=== PATIENT | male | born 1965 | race Caucasian/White ===

== ENCOUNTER 2019-01-09 17:03 | Emergency (ER) | payer BC ==
[2019-01-09 17:55] LABS: ABS Basophils 0.1 10^3/ul (0-0.2); ABS Eosinophils 0.3 10^3/ul (0-0.6); ABS Lymphocytes 1.1 10^3/ul (1.0-4.8); ABS Monocytes 0.7 10^3/ul (0-0.8); ABS Neutrophils 5.7 10^3/ul (1.5-7.7); Eosinophil % 3.4 %; Hematocrit 43 % (42-52); Hemoglobin 14.7 g/dL (14.0-18.0); Lymphocyte % 14.4 %; Mean Corpuscular HGB Conc 34 g/dL (31-36); Mean Corpuscular Hemoglobin 29 pg (27-31); Mean Corpuscular Volume 86 fL (80-94); Mean Platelet Volume 9.1 fL (7.4-10.4); Platelet Count 300 10^3/uL (150-450); Red Cell Distribution Width 14 % (10-15); White Blood Count 7.8 10^3/uL (3.5-10.8)
--- NOTE | 2019-01-09 18:08 | ED ---
Hypertension - HPI Summary HPI Summary: Pt is a 53 y/o M presenting to the ED With a chief complaint of HTN. Pt states that he was feeling "woozy" yesterday but the feeling passed, and today he had similar symptoms. He felt like he was going to pass out, his skin was "prickly" , and that something wasnt right. He notes he has had increased stress recently including working longer hours, and has hx of hypertensive episodes where hes felt similarly. He denies CP or SOB. He had an stress echocardiogram within the last 5 years. Denies current difficulty breathing or trouble swallowing (as per Rn note). Denies history of [place]. - History of Current Complaint Chief Complaint: EDHypertension Stated Complaint: GENERAL ILLNESS PER EMS Time Seen by Provider: 01/09/19 17:07 Hx Obtained From: Patient Onset/Duration: Started Days Ago, Still Present Timing: Intermittent, Lasting Hours Aggravating Factor(s): Nothing Alleviating Factor(s): Nothing Associated Signs & Symptoms: Anxiety/Stress, Dizziness - Allergies/Home Medications Allergies/Adverse Reactions: Allergies Allergy/AdvReac Type Severity Reaction Status Date / Time No Known Allergies Allergy Verified 01/30/16 09:42 PMH/Surg Hx/FS Hx/Imm Hx Previously Healthy: Yes Endocrine/Hematology History: Denies: Hx Diabetes Cardiovascular History: Reports: Hx Hypercholesterolemia, Hx Hypertension Denies: Hx Pacemaker/ICD History: Denies: Hx Renal Disease Musculoskeletal History: Denies: Hx Rheumatoid Arthritis, Hx Osteoporosis Sensory History: Reports: Hx Contacts or Glasses, Hx Vision Problem Denies: Hx Hearing Aid Opthamlomology History: Reports: Hx Contacts or Glasses, Hx Vision Problem Neurological History: Reports: Other Neuro Impairments/Disorders - passed out x 4 in past Psychiatric History: Denies: Hx Panic Disorder - Cancer History Cancer Type, Location and Year: 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 - Surgical History Surgery Procedure, Year, and Place: LYPOSARCOMA REMOVED RIGHT LEG 2014 Infectious Disease History: No Infectious Disease History: Denies: Traveled Outside the [place] in Last 30 Days - Family History Known Family History: Negative: Diabetes - Social History Occupation: Employed Full-time Alcohol Use: Weekly Hx Substance Use: No Substance Use Type: Reports: None Hx Tobacco Use: No Smoking Status (MU): Never Smoked Tobacco Review of Systems Positive: Other - HTN Positive: Other - trouble swallowing (resolved) Negative: Chest Pain Negative: Shortness Of Breath Neurological: Other - dizziness, lightheadedness Positive: Other - increased stress All Other Systems Reviewed And Are Negative: Yes Physical Exam - Summary Physical Exam Summary: Constitutional: Well-developed, Well-nourished, Alert. (-) Distressed Skin: Warm, Dry HENT: Normocephalic; Atraumatic Eyes: Conjunctiva normal Neck: Musculoskeletal ROM normal neck. (-) JVD, (-) Stridor, (-) Nuchal rigidity Cardio: Rhythm regular, rate bradycardic, Heart sounds normal; Intact distal pulses; Radial pulses are 2+ and symmetric. (-) Murmur Pulmonary/Chest wall: Effort normal. (-) Respiratory distress, (-) Wheezes, (-) Rales Abd: Soft, (-) tenderness, (-) Distension, (-) Guarding, (-) Rebound Musculoskeletal: (-) Edema Lymph: (-) Cervical adenopathy Neuro: Alert, Oriented x3 Psych: Mood and affect Normal Triage Information Reviewed: Yes Vital Signs On Initial Exam: Initial Vitals Temp Pulse Resp BP Pulse Ox 98.3 F 65 16 190/111 97 01/09/19 17:06 01/09/19 17:06 01/09/19 17:06 01/09/19 17:06 01/09/19 17:06 Vital Signs Reviewed: Yes Procedures - Sedation Patient Received Moderate/Deep Sedation with Procedure: No Diagnostics - Vital Signs Vital Signs Temp Pulse Resp BP Pulse Ox 01/09/19 17:06 98.3 F 65 16 190/111 97 - Laboratory Lab Results: Lab Results 01/09/19 Range/Units 17:48 WBC 7.8 (3.5-10.8) 10^3/uL RBC 5.00 (4.18-5.48) 10^6 /uL Hgb 14.7 (14.0-18.0) g/dL Hct 43 (42-52) % MCV 86 (80-94) fL MCH 29 (27-31) pg MCHC 34 (31-36) g/dL RDW 14 (10-15) % Plt Count 300 (150-450) 10^3/uL MPV 9.1 (7.4-10.4) fL Neut % (Auto) 73.0 % Lymph % (Auto) 14.4 % [place] % (Auto) 8.4 % Eos % (Auto) 3.4 % Baso % (Auto) 0.8 % Absolute Neuts (auto) 5.7 (1.5-7.7) 10^3/ul Absolute Lymphs (auto) 1.1 (1.0-4.8) 10^3/ul Absolute Monos (auto) 0.7 (0-0.8) 10^3/ul Absolute Eos (auto) 0.3 (0-0.6) 10^3/ul Absolute Basos (auto) 0.1 (0-0.2) 10^3/ul Absolute Nucleated RBC 0.0 10^3/ul Nucleated RBC % 0.0 Result Diagrams: 01/09/19 17:48 01/09/19 17:48 Lab Statement: Any lab studies that have been ordered have been reviewed, and results considered in the medical decision making process. - EKG 1712 Cardiac Rate: Bradycardia - 48bpm EKG Rhythm: Sinus Rhythm ST Segment: Normal Ectopy: None Summary of EKG Findings: An EKG at 1712 reveals sinus bradycardia at 48bpm, nml axis, nml intervals. No STEMI. No acute changes. ED physician has reviewed and interpreted this EKG. Re-Evaluation - Re-Evaluation First Eval Re-Evaluation Time: 18:30 Change: Improved - Patient reports feeling improved, troponin negative. Denies headaches, chest pain, lightheadedness. Hypertension Course/Dx - Course Course Of Treatment: 53 y/o male with a history of hypertension presents with lightheadedness. - physical exam unremarkable. Patient hypertensive 190, that resolved to 150 intervention. Will check basic labs EKG and reassess. -Based on my eval today, no evidence of end organ damage from hypertension. - chemistry wnl,no KRISTA noted (states baseline Cr around 1.3), no chest pain/sob, no FIGUEROA, neuro exam non-focal. Recommendations for BP management: -The pt likely suffers from essential hypertension. -In the absence of a hypertensive emergency, which the pt does not have, there is no indication to aggressively treat her elevated blood pressure, even when it approaches the systolic ~180 range. -The patient needs shelter management of her blood pressure. -acutely , the pt may still have an elevated pressure, but over time the medication will take effect. - Diagnoses Provider Diagnoses: HTN (hypertension), Lightheadedness Discharge ED - Sign-Out/Discharge Documenting (check all that apply): Patient Departure - Discharge Plan Condition: Stable Disposition: HOME Patient Education Materials: Hypertension (ED), Lightheadedness (ED) Referrals: Gregoyr Gama MD [Primary Care Provider] - Additional Instructions: You were seen in the emergency department for high blood pressure. Your creatinine is 1.3 which is your baseline. If any studies were not completed at the time of discharge you will be called with the relevant results. Please follow up with your primary care doctor in next 2-3 days and return to emergency department for worsening lightheadedness, chest pain, passing out or concerning symptoms. It was a pleasure taking care of you today. - Billing Disposition and Condition Condition: STABLE Disposition: Home - Attestation Statements Document Initiated by Beth: Yes Documenting Scribe: Kia Crook Provider For Whom Beth is Documenting (Include Credential): Lane Romero MD. Scribe Attestation: I, Kia Crook, scrsundayed for Lane Romero MD. on 01/09/19 at 1854. Scribe Documentation Reviewed: Yes Provider Attestation: The documentation as recorded by the scribeKia accurately reflects the service I personally performed and the decisions made by , Lane Romero MD. Status of Scribe Document: Viewed
[2019-01-09 18:12] LABS: Albumin 4.4 g/dL (3.2-5.2); Albumin/Globulin Ratio 1.4 (1-3); BUN/Creatinine Ratio 16.9 (8-20); Calcium 10.1 mg/dL (8.6-10.3); EGFR African American 69.6 (>60); EGFR Non-African American 57.5 (>60); Globulin 3.1 g/dL (2-4); Potassium 3.6 mmol/L (3.5-5.0); Total Bilirubin 0.4 mg/dL (0.2-1.0); Total Protein 7.5 g/dL (6.4-8.9)
[2019-01-09 18:34] LABS: Troponin I 0.01 ng/mL (<0.04)
[2019-01-09 18:53] VITALS: BP 156/84
== END 2019-01-09 18:54 | disposition home or self-care (01) ==
LOC: ED 17:03
DX: I10 Essential (primary) hypertension (principal); R42 Dizziness and giddiness; E78.00 Pure hypercholesterolemia, unspecified; R94.31 Abnormal electrocardiogram [ECG] [EKG]; Z85.831 Personal history of malignant neoplasm of soft tissue
CPT/HCPCS: 36415; 80053; 84484; 85025; 93005; 99283